=== PATIENT | female | born 1950 | race Caucasian/White ===

== ENCOUNTER 2018-07-30 19:35 | Emergency (ER) | payer MEDICARE ==
[~2018-07-30] VITALS: Ht 160 cm; Wt 113.5 kg
--- NOTE | 2018-07-30 19:35 | NUR ---
BIB EMS for abd pain and difficulty breathing x 3 days. Pt states she was recently seen at [facility] and diagnosed with bronchitis, pt took 5 days of an ABX and finished the course. Pt states that she has been having difficulty urinating and pain with urination. Subjective fevers over the past few days as well.
--- NOTE | 2018-07-30 20:00 | NUR ---
Dr. Ty at bedside to evaluate pt.
[2018-07-30] MEDS ORDERED: PLEASE ENTER ALLERGIES MC SCH (20:30)
[2018-07-30] MEDS ORDERED: PLEASE ENTER HEIGHT AND WEIGHT MC SCH (20:30)
[2018-07-30] MEDS ORDERED: KETOROLAC 30 MG/1 ML IVPush ONE (20:30)
[2018-07-30] MEDS ORDERED: SODIUM CHLORIDE FLUSH 10ML SYR IVF ONE (20:30)
[2018-07-30] MEDS ORDERED: MORPHINE SULFATE 4 MG/ML, 1ML IVPush PRN (20:30)
[2018-07-30] MEDS ORDERED: METOCLOPRAMIDE 5 MG/ML, 2ML IVPush ONE (20:30)
[2018-07-30 20:32] LABS: MICROSCOPIC INDICATED
[2018-07-30 20:42] LABS: CULTURE INDICATED? NO
[2018-07-30 20:56] LABS: BASOPHILS # (AUTO) 0.05 x10^3/uL (0-0.1); BASOPHILS % (AUTO) 1 % (0-1); EOSINOPHILS # (AUTO) 0.17 x10^3/uL (0-0.4); EOSINOPHILS % (AUTO) 3 % (1-7); LYMPHOCYTES % (AUTO) 34 % (22-44); MD NO; MEAN CORPUSCULAR HEMOGLOBIN 24.9 pg (27.0-34.8); MEAN CORPUSCULAR HGB CONC 31.8 g/dL (32.4-35.8); MEAN CORPUSCULAR VOLUME 78.2 fL (80-100); MEAN PLATELET VOLUME 8.1 fL (7.4-10.4); MONOCYTES # (AUTO) 0.63 x10^3/uL (0.2-0.8); MONOCYTES % (AUTO) 9 % (2-9); NEUTROPHILS # (AUTO) 3.69 x10^3/uL (1.8-6.8); NEUTROPHILS % (AUTO) 54 % (42-75); PLATELET COUNT 235 x10^3/uL (130-400); RED BLOOD COUNT 5.27 x10^6/uL (3.82-5.3); RED CELL DISTRIBUTION WIDTH 14.7 % (9.6-15.2)
[2018-07-30 21:04] LABS: ALANINE AMINOTRANSFERASE 30 U/L (12-78); ALBUMIN 3.4 g/dL (3.4-5.0); ANION GAP 7 mmol/L (5-15); CALCIUM 8.8 mg/dL (8.5-10.1); CHLORIDE 105 mmol/L (98-107); CREATININE 0.94 mg/dL (0.55-1.02)
[2018-07-30] MEDS ORDERED: MORPHINE SULFATE 4 MG/ML, 1ML ONE (21:05)
[2018-07-30] MEDS ORDERED: METOCLOPRAMIDE 5 MG/ML, 2ML ONE (21:05)
[2018-07-30] MEDS ORDERED: KETOROLAC 30 MG/1 ML ONE (21:05)
[2018-07-30 21:08] LABS: ALKALINE PHOSPHATASE 99 U/L (45-117); BILIRUBIN,TOTAL 0.3 mg/dL (0.2-1.0); TOTAL PROTEIN 7.6 g/dL (6.4-8.2); TROPONIN I < 0.015 ng/mL (0.000-0.045)
--- NOTE | 2018-07-30 21:15 | NUR ---
PT MEDICATED PER MAR.
--- NOTE | 2018-07-30 22:00 | NUR ---
Pt to imaging, with tech, via [place].
[2018-07-30] MEDS ORDERED: OMNIPAQUE 350 MG/ML, 100ML BOTTLE ONE (22:15)
--- NOTE | 2018-07-30 22:25 | NUR ---
Pt back to room from imaging, resting on gurney, remains on monitors.
[2018-07-30 23:36] VITALS: BP 137/82
== END 2018-07-30 23:38 | disposition home or self-care (01) ==
LOC: ED 21:00
DX: B34.9 Viral infection, unspecified (principal); Z88.8 Allergy status to other drugs, medicaments and biological substances; Z95.0 Presence of cardiac pacemaker
CPT/HCPCS: 36415; 71045; 71275; 80053; 81001; 83605; 83880; 84145; 84484; 85025; 87040; 93005; 96374; 96375; 99284; J1885; J2765; Q9967

== ENCOUNTER 2018-11-27 09:36 | Outpatient (CLI) | payer MEDICARE | END 2018-11-27 23:59 | disposition home or self-care (01) | LOC: CFH 09:36 | PROVIDERS: ATTEND Nurse Practitioner | DX: Z12.2 Encounter for screening for malignant neoplasm of respiratory organs (principal); R91.1 Solitary pulmonary nodule; I25.10 Atherosclerotic heart disease of native coronary artery without angina pectoris; Z87.891 Personal history of nicotine dependence | CPT/HCPCS: G0297 ==

== ENCOUNTER → 2019-09-14 | Outpatient (CLI) | payer MEDICARE | END | disposition home or self-care (01) | LOC: CFH 14:23 | PROVIDERS: ATTEND Physician Assistant Medical | DX: I26.99 Other pulmonary embolism without acute cor pulmonale (principal); I25.118 Atherosclerotic heart disease of native coronary artery with other forms of angina pectoris; I47.1 Supraventricular tachycardia; E66.9 Obesity, unspecified; Z95.0 Presence of cardiac pacemaker | CPT/HCPCS: 71046 ==

== ENCOUNTER 2020-01-07 08:14 | Outpatient (CLI) | payer MEDICARE ==
[~2020-01-07 08:14] MED LIST: REGADENOSON 0.4 MG/5 ML SYRINGE ONE
== END 2020-01-07 23:59 | disposition home or self-care (01) ==
LOC: CFH 08:14
PROVIDERS: ATTEND Physician Assistant Medical
DX: Z12.2 Encounter for screening for malignant neoplasm of respiratory organs (principal); I21.29 ST elevation (STEMI) myocardial infarction involving other sites; I25.9 Chronic ischemic heart disease, unspecified; R91.1 Solitary pulmonary nodule; Z87.891 Personal history of nicotine dependence
CPT/HCPCS: 78452; 93017; A9502; G0297; J2785